=== PATIENT | female | born 1995 | race Caucasian/White ===

== ENCOUNTER 2020-02-20 15:01 | Emergency (ER) | payer MEDICAID ==
[~2020-02-20] VITALS: Ht 154.9 cm; Wt 59.9 kg
[2020-02-20 15:23] VITALS: Ht 154.9 cm; Wt 59.9 kg
[2020-02-20 18:05] VITALS: BP 105/71
== END 2020-02-20 18:05 | disposition home or self-care (01) ==
LOC: ED 15:01
DX: S76.911A Strain of unspecified muscles, fascia and tendons at thigh level, right thigh, initial encounter (principal); V93.63XA Machinery accident on board other powered watercraft, initial encounter; Y93.I9 Activity, other involving external motion; Y92.89 Other specified places as the place of occurrence of the external cause; Y99.8 Other external cause status
CPT/HCPCS: 90715